=== PATIENT | female | born 1975 | race Caucasian/White ===

== ENCOUNTER 2024-08-24 11:43 | Outpatient (RCR) | payer OTHER, SELFPAY ==
--- NOTE | 2024-09-13 08:26 | ONC.NURNOTE ---
Dx: Left lung cancer
== END 2025-02-20 23:59 | disposition home or self-care (01) ==
LOC: CCIC 11:43
PROVIDERS: PCP Family Medicine; Visit Provider Clinical Nurse Specialist
DX: C34.02 Malignant neoplasm of left main bronchus (principal)
CPT/HCPCS: 99211